=== PATIENT | female | born 1950 | race African-American/Black ===

== ENCOUNTER 2016-10-05 21:25 | Inpatient (IN) | payer OTHER ==
[~2016-10-05] VITALS: Ht 165.1 cm; Wt 50.5 kg
--- NOTE | ~2016-10-05 | PR ---
[place], [place] PROGRESS NOTE NAME: MAXIMILIANO MEANS UNIT #: [id number] ROOM: 317 DOCTOR: JUAREZ CARNES MD BIRTHDATE: [birth year] DOS: 10/15/2016 INTERVAL NOTE CHIEF COMPLAINT: "Come here closer, I want to be able to touch you." SUMMARY OF THE VISIT: The patient was interviewed as I talked to her while she rested in bed. She continued to be very profane and sexually preoccupied. Nurses report that she has been vulgar and crude with them as well. Initially, she refused to take any of her oral medication. When I approached her this morning with a nurse in [place], she initially refused to take any medication, but then when I confronted her on her lack of compliance, she agreed to ultimately take her medicines. Nurses report that she took everything but the Lidocaine patch this morning. She continues to be extremely volatile and hypomanic. She has a hard time redirecting at times, and at other times, she will pool herself together and redirect well. She is tolerating the current medication regimen well and has been getting most of the antipsychotic medications in her without any type of extrapyramidal symptoms or tardive dyskinesia noted. MENTAL STATUS: She is alert and oriented to person, place, and very approximate to time. Mood does seem to be trending towards euthymia with some mild hypomania noted. She is pressured but interruptible. She no longer is tangential in her thinking. She is still rather sexually preoccupied but again usually redirects. There is no severe agitation or aggression noted. Memory for recent events does have some gaps, but overall, she is fairly well intact. PLAN: At the present time is to maintain the current psychotropic regimen. At this point in time, I think we have reached baseline, and we will plan to discharge her back to [facility] later today. She should receive papers regarding guardianship, and I do want her to have 24 hours to process that here in the hospital to make certain that she does not decompensate horribly because of this. If this is the case, we will return her to [facility] then on Tuesday. [place], [place] PROGRESS NOTE NAME: MAXIMILIANO MEANS UNIT #: [id number] ROOM: [facility] DOCTOR: JUAREZ CARNES MD BIRTHDATE: [birth year] JUAREZ CARNES MD CM:PNTRANS 2 5 JUAREZ CARNES MD 10/16/16 0245 interface
--- NOTE | ~2016-10-05 | PR ---
[place], [place] PROGRESS NOTE NAME: MAXIMILIANO MENAS [id number] UNIT #: [id number] ROOM: 317 DOCTOR: CALVIN ALANIZ BIRTHDATE: [birth year] DOS: 10/09/2016 CHIEF COMPLAINT: "Good morning." SUMMARY OF VISIT: The patient was assessed and interviewed in her room. Things went south fairly quickly. I asked her why she was not taking her meds, stated that the Klonopin makes her feet swell, the lithium makes her tongue swell and the Invega gives her diarrhea. Multiple attempts were made yesterday. We could not get the Invega Sustenna injection in her at all to help break the psychosis. Unfortunately, when she becomes manic, she always has underlying delusion that she is a deity, that she is rich and very sexually preoccupied, but as her ana rosa becomes worse, she becomes paranoid, thinking that we are trying to poison her, and then her grandiose delusions become increased aggression and agitation verbally and physically and this is where we are at right now. She turned very quickly on me, attempts to redirect were unsuccessful. She got angry, belligerent, has used foul language with staff. Since she has been here, she has not taken her Klonopin, her lithium or the p.o. Invega, let alone the Invega Sustenna injection. Our thought is that most likely she was [facility]compl[facility] as [facility], hence the ana rosa. MENTAL STATUS: She is alert and oriented to person, place, approximate time, grossly delusional, paranoid, extreme mood lability, manic maybe more hypomanic. PLAN: I am going to go ahead and stop the Klonopin, no sense on this keep trying it. She is adamant. She is standing Klonopin, the lithium. We will keep attempting the Invega Sustenna, so I am going to keep her on the Invega. She has told staff over and over all she wants is Navane, Cogentin and Risperdal. She is already on Cogentin, so I am going to try the Risperdal higher dose M-tablet to see if we can get it in her and get her calm down and we are going to keep trying to get this Invega Sustenna injection in her. JENNA ALANIZ CNP CM:IRMA [id number] CALVIN ALANIZ 10/09/16 112 interface
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
--- NOTE | ~2016-10-05 | WRIGHTHP ---
[place], [place] PATIENT HISTORY AND PHYSICAL EXAM [id number] UN[facility] #: [id number] ROOM: 317 DOCTOR: JUAREZ CARNES MD BIRTHDATE: [birth year] DOS: 10/06/2016 INITIAL PSYCHIATRIC EVALUATION CHIEF COMPLAINT: "I am a zillionaire. I don't need to be here. I wanna go back to my home." HISTORY OF PRESENT ILLNESS: This is a 66-year-old black female who is readmitted to the [facility] coming from [facility] in [place], [place]. The patient has a lengthy history of bipolar disorder and has been escalating into a manic episode over the last 2-3 weeks. During this period of time, she has become increasingly manic with increased sexual behaviors. She has been repeatedly crawling into bed with a paraplegic resident. Attempts to redirect her have been met with her becoming increasingly verbal and physically aggressive with staff. The patient believes she is a zillionaire and no longer needs to be at [facility] and wants to return back to her home. She has been episodically noncompliant with her medicine, further exacerbating her underlying ana rosa. She is admitted now to rule out organic factors to attempt to restabilize on medication while engaging her in individual and schaefer milieu activity. PAST MEDICAL HISTORY: Remarkable for osteoarthritis, hyperlipidemia, hypothyroidism, left eye injury, tardive dyskinesia, vitamin D deficiency, and history of TIAs. MENTAL STATUS EXAMINATION: She is alert and oriented with some time gaps. Mood is overwhelmingly grandiose and expansive. She believes she is a millionaire, or in her report a zillionaire. She is very sexually inappropriate and fixated making multiple sexual comments to me. She is somewhat pressured; however, she is redirectable. Her thoughts are rather disjointed. She is nearly tangential in her thinking, but again can be reigned back in. She is grossly psychotic as well. Short-term memory has some gaps. DIAGNOSIS: Bipolar type 1, manic, with psychotic features. PLAN: I will go ahead and increase her oral Invega from 9 mg a day to 12 mg a day and start her on Saphris oral disintegrating tablets 10 mg twice daily. She had been stabilized in the past on Invega Sustenna. I will look to restabilize her if at all possible. Unfortunately, she does have a history of being very noncompliant with medications, so I will need to utilize medications that are given less frequent and are given in ways in which we can more appropriately get the medication into her. We will need to explore possible discharge options as I am not certain if [facility] will accept her back given her lengthy history of behavioral problems. We will engage her in individual and schaefer milieu activity, discharging her then when psychiatrically stable. [place], [place] PATIENT HISTORY AND PHYSICAL EXAM NAME: MAXIMILIANO MEANS UNIT #: [id number] ROOM: 317 DOCTOR: JUAREZ CARNES MD BIRTHDATE: [birth year] JUAREZ CARNES MD CM:HISPHYS:PATIENT HISTORY AND PHYSICAL EXAMINATION 6 JUAREZ CARNES MD 10/06/1637 interface
--- NOTE | ~2016-10-05 | DS ---
[place], [place] DISCHARGE SUMMARY NAME: MAXIMILIANO MEANS UNIT #: [id number] ROOM: 317 DOCTOR: JUAREZ CARNES MD BIRTHDATE: [birth year] DOS: 10/19/2016 ADDENDUM PROPOSED INITIAL DATE OF DISCHARGE: 10/16/2016. ACTUAL DISCHARGE DATE: 10/19/2016. CHIEF COMPLAINT: This morning, "If I don't go home today, will you see that I get an Orthopedic consult." SUMMARY OF THE REMAINDER OF THE VISIT: The patient was to be discharged to [facility] on 10/16/2016. However, due to staffing issues there, [facility] refused to take the patient back stating that it was unsafe. We did have to keep the patient through the weekend until Tuesday. During this period of time, she remains somewhat labile but was redirectable. She did require some PRNs but responded very well to them and had no adverse events. Ultimately, because of some of her mood lability and episodic noncompliance with medicine, she was reloaded with Risperdal Consta 50 mg IM yesterday. She tolerated this well and has had a positive benefit. Of note, this seems to be the patient's baseline. She mixes both behavior along with hypomania, and I do believe that this is about as good as her overall mental status is going to be. She was discharged now to [facility] for further treatment. MENTAL STATUS AT DISCHARGE: The patient is alert and oriented with some time gaps. Mood does seem to be more euthymic with some hypomanic episodes. There is some sexual preoccupation, but again, I believe this is baseline. She is tolerating the medication regimen well without any apparent extrapyramidal symptoms, tardive dyskinesia, or other side effects. FINAL DIAGNOSIS: Remains the same. The patient is to return to [facility] where I will follow upon her return there. [place], [place] DISCHARGE SUMMARY NAME: MAXIMILIANO MEANS UNIT #: [id number] ROOM: 317 DOCTOR: JUAREZ CARNES MD BIRTHDATE: [birth year] JUAREZ CARNES MD CM:JOSE [phone] JUAREZ CARNES MD 10/19/16 0818 interface
--- NOTE | ~2016-10-05 | PR ---
[place], [place] PROGRESS NOTE NAME: MAXIMILIANO MEANS UNIT #: [id number] ROOM: 317 DOCTOR: JUAREZ CARNES MD BIRTHDATE: [birth year] DOS: 10/12/2016 INTERVAL NOTE CHIEF COMPLAINT: "I don't want to go back to [facility], I want to go to [facility] or [facility]. SUMMARY OF THE VISIT: The patient was interviewed in the dining area at first she engaged in relatively normal conversation with me, stating how she was disappointed to be in the hospital over the holidays and how it was a rough weekend. She later went on to explain how she would like not to return back to [facility], but would like to be placed either [facility] or [facility]. I did discuss with her the possibility of [facility] as well and she was aware that this is the facility located near the [facility] and would be okay with that. Conversation deteriorated quickly after that and she became then sexually inappropriate with gross sexual comments directed towards me. She did redirect; however, more readily. The patient is tolerating her current medication regimen well and in general is taking her oral medications on a more consistent basis. MENTAL STATUS: She is alert and oriented with some time gaps. Mood does seem to be trending towards euthymia. Affect is more appropriate. There is still the presence of hypomania with a great deal of sexual preoccupation. She at times is pressured, but she is interruptible. There has no attempts for physical aggression noted. Memory for some short term events is poor, otherwise she is fairly well intact. PLAN: At the present time, I will maintain her current psychotropic regimen, which includes the use of 2 antipsychotics medications in order to control her mood lability and gross psychotic symptoms. I will discuss the case at length with director social welfare to see if alternative placement to either [facility] or [facility] is an option for her. We will continue to engage her in individual and schaefer milieu activity with the plan to return to a long-term care facility then when psychiatrically stable. [place], [place] PROGRESS NOTE NAME: MAXIMILIANO MENAS UNIT #: [id number] ROOM: [facility] DOCTOR: JUAREZ CARNES MD BIRTHDATE: [birth year] JUAREZ CARNES MD CM:PNTRANS [phone] JUAREZ CARNES MD 11/24/16 1540 interface
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
--- NOTE | ~2016-10-05 | CON ---
[place], [place] REPORT OF CONSULTATION NAME[id number] UNIT #: [id number] ROOM: 317 DOCTOR: LASHAY SHEARER ED.D (SILVIA) BIRTHDATE: [birth year] DOS: HISTORY OF PRESENT ILLNESS: The patient is a 66-year-old female referred by Dr. Carnes for competency evaluation. At the present time, this patient knows she is on the [facility] at [facility]. She is receiving services from [facility] at this time. Her family physician is Dr. Roberts in [place], [place]. PAST MEDICAL HISTORY: Pertinent for osteoarthritis, hypothyroidism, left eye injury, tardive dyskinesia, vitamin D deficiency, history of TIAs, bipolar disorder with psychotic features. MEDICATIONS: Include Risperdal, Cogentin, Synthroid, atorvastatin, Syphis, Ativan and Geodon. She does admit to smoking 3 packs of cigarettes per day, but drinks relatively little alcohol, although she does drink alcohol on rare occasions. She was awake, alert and oriented in all 3 spheres. She indicated she is at [facility] and it is 10/12/2016. She denies any auditory or visual hallucinations or delusions. Her short and long-term memory appeared to be intact. Her speech was coherent. She does get quite agitated and aggressive at times, but she was not aggressive whatsoever during the interview. In my opinion, this patient appeared to be competent to make informed healthcare decisions. DIAGNOSIS: AXIS I: Bipolar 1 with psychotic features. RECOMMENDATIONS: Continue milieu activities on the unit. Thank you very much for this consult. LASHAY SHEARER ED.D CM:CONSTR:REPORT OF CONSULTATION 1509 11/25/16 1054 interface JUAREZ CARNES MD
--- NOTE | ~2016-10-05 | PR ---
[place], [place] PROGRESS NOTE NAME[facility]ANS [id number] UNIT #: [id number] ROOM: 317 DOCTOR: JUAREZ CARNES MD BIRTHDATE: [birth year] DOS: 10/18/2016 CHIEF COMPLAINT: "I wanna go home. Is that gonna happen today?" SUMMARY OF THE VISIT: I had an interesting visit with the patient today. I deliberately made her the last person that I rounded in the dining area. Of note, as I approached each other patient I had her at no point where she interrupting me or intrusive. She made no inappropriate comments towards me, which is in [place] contrast to earlier in her hospitalization when this was not seemingly possible as I initially approached her to engage her, she was pleasant and cooperative. She later made some inappropriate comments such as if she was to be evaluated the nurses needed to be evaluated too because someone as important as her needs to make certain that the people taking care of her know what they are doing. Nurses report continued mood lability throughout the day; she has escalated to the point of tearing her mattress of the bed attempting to strike out at others. At other times, she does seem to be more redirectable. I do think we are looking at a mixture at this point of hypomanic symptoms mixed with behavior. I do believe that if she is able to stay in control in the room talking to other patients that she is not frankly manic, but that some of her behaviors are simply that. I do think when she receives her p.r.n. medications, they do give her benefit and she is still episodically noncompliant with her medicines. I will go ahead and try to load her with Risperdal Consta 50 mg IM now to see if we can gain further control over her hypomania. She is tolerating the current medications well, and I see no extrapyramidal symptoms, tardive dyskinesia, somnolence or others side effects themselves. My hope is that we are able to discharge her to [facility], which should have actually happened several days ago. I also think that when she is there, it would benefit them from consulting a psychologist to help set up a behavioral management plan to help deal with her behaviors and find a way to reward her for better behaviors or finding a way to rein her in for the undesirable behaviors. MENTAL STATUS: She is alert and oriented to person, place and very approximate to time. Mood does seem to be overall trending towards euthymia and affect is more appropriate. There are no symptoms of ana rosa. I think at best, she is hypomanic, but even then trending toward further improvement. There are no overt auditory or visual hallucinations, delusions or paranoia. Short-term memory has mild gaps; otherwise she is relatively well intact. PLAN: As mentioned earlier, I will load with Risperdal Consta 50 mg IM now and every 14 days. If she continues to be compliant with the Consta, we can discontinue the oral Risperdal maintaining the Saphris with it at this point in time. As mentioned previously, I planned to discharge back to [facility] when a bed is available. [place], [place] PROGRESS NOTE NAME: MAXIMILIANO MEANS UNIT #: [id number] ROOM: 317 DOCTOR: JUAREZ CARNES MD BIRTHDATE: [birth year] JUAREZ CARNES MD CM:PNTRANS [phone] JUAREZ CARNES MD 11/24/16 1531 interface
--- NOTE | ~2016-10-05 | PR ---
[place], [place] PROGRESS NOTE [id number] UNIT #: [id number] ROOM: 317 DOCTOR: CALVIN ALANIZ STEVIE BIRTHDATE: [birth year] DOS: 10/11/2016 CHIEF COMPLAINT: "Good morning Stevie, how are you?" SUMMARY OF VISIT: The patient was interviewed in the dining room where she was eating breakfast. She engaged readily in conversation, was pleasant. I asked her how she was doing, and she is like, "not so good," and I asked her why. She said, "Well, physically I am okay; mentally I want to thank you for making the medication changes that you've made. I don't want to be here, but I think I'm feeling better." Emotionally she said, "I'm lonely," and she said that she wanted to have somebody to love, and so she is hypersexual with everybody, I assume. She was talking sexually, and I said, "You mean in a sexual manner?" She says, "Well, yeah that." She is with just somebody to love and be loved by and to have. This is the most insight I have actually gotten from the patient in a very long time. She expressed that she is lonely and that she does not want to be here, and some of her behaviors she is aware of. It should be noted that along with her medication changes a couple of days ago, she did receive p.r.n. Ativan during the day, and it was the most engaging that she has ever been. She communicated well with the other residents, the staff. She was interactive. She invited people to eat with her, to play games with her, joked with them. She is fixated in her mind that she cannot take Klonopin or Ativan or anything like that because it causes her ankles to swell, but whenever she has the Ativan on board, she actually is much more calm. MENTAL STATUS: She is alert and oriented to person, place, approximate time. I think she can still be delusional if you get her talking about God, and such, she will tell you that she is a God, but then she also acknowledges that her behaviors sometimes she does them to get what she wants because she feels she gets ignored. She is still sexually preoccupied. She did make an inappropriate sexual comment towards me today. She stated she meant it as a compliment. No overt signs of auditory or visual hallucinations. No paranoia right now. PLAN: She did ask me again to stop the Invega. She has been refusing it since she has been here, and she does not want any kind of injection. She goes "needles freak me out." She goes "I will lose it when I think there is going to be a needle involved." So, we will go ahead and stop the Invega as well. I had stopped the Klonopin because she felt that it was causing ankle swelling, and I stopped the lithium because I think she said it made her puffy. All these medications she had been refusing since she has been here anyway, so they were not even on board to start with, and I do not know how compliant she was at [facility]. So, we are going to get rid of the Invega. She wanted to be on the Risperdal again, so I had her on 2 mg q.a.m. I am going to increase that to b.i.d. She wants to be on the Cogentin, and she is on that as well. Again, the last couple of days, she has been the most interactive and articulate that she has been in a while. She also wants to be back on Navane. I am going to defer this for now. We will continue to try to engage in individual and schaefer milieu therapy. I have asked the nurses today to try to talk to her a little bit more about, maybe, Ativan scheduled and get a feel of whether or not she would take it because I really feel from her behavior and personality standpoint that benzos seems to do really well in her system. I think that is why we are going [place], [place] PROGRESS NOTE NAME: MAXIMILIANO MEANS [place] UNIT #: [id number] ROOM: 317 DOCTOR: CALVIN ALANIZ BIRTHDATE: [birth year] with the Klonopin to start with, but she is fixated on Klonopin right now causing her ankles to swell. She has also articulated the desire to go to another nursing facility and I think it is because she just wants to be around people more like herself. She feels that the [facility] is predominantly white and staff predominantly white, and they do not get her, so we will follow up with a social media manager with regard to that to see what her options are. We will continue to try to engage in individual and schaefer milieu therapy, use non-pharmaceutical interventions when appropriate and make the medication adjustments I mentioned above. STEVIE ALANIZ CNP CM:PNTRANS [id number] CALVIN ALANIZ 10/11/16 1301 interface
--- NOTE | ~2016-10-05 | PR ---
[place], [place] PROGRESS NOTE NAME: [facility]ANS [id number] UNIT #: [id number] ROOM: 317 DOCTOR: CALVIN ALANIZ BIRTHDATE: [birth year] DOS: 10/07/2016 CHIEF COMPLAINT: "aha." SUMMARY OF VISIT: The patient was interviewed in the dining room where she was eating breakfast. She would not look at me, would just say aha or yeah or no to my questions. She would not engage in conversation. This is normal for her. She does certainly has a preference for males, in particular Dr. Marmolejo. Nursing did mention that she would only take her Synthroid and her Saphris yesterday. She refused other meds during the day, not so much in the evening. MENTAL STATUS EXAMINATION: She is alert and oriented to person, place, and approximate to time. Mood wildly labile. While we were in report she began pounding on the window because she saw Dr. Marmolejo and wanted his attention. She still believes that she is a millionaire to [employer]. She is sexually inappropriate, fixated on making multiple sexual comments not only to Dr. Marmolejo, but any other gentleman on the unit such as security guards. PLAN: Dr. Marmolejo increased her Invega yesterday, however, she appears that she did not take it. We are going to try to get it in her again today and see if we can get her to take it. If she does, then we are going to have to look at possibly doing a loading dose or reloading her on Invega Sustenna to see if we can help break the psychosis, and we had had to do this in the past. She has a long history of noncompliance with her medications. We will see how she does with her p.o. and recommended meds today. I did go back out and talked to her that she needed to take her meds. She would not look at me. If she does it again, we will look at the Invega Sustenna injection. JENNA AALNIZ CNP CM:PNTRANS [phone] CALVIN ALANIZ 10/07/162046 interface
--- NOTE | ~2016-10-05 | PR ---
[place], [place] PROGRESS NOTE NAME: MAXIMILIANO MEANS UNIT #: [id number] ROOM: 317 DOCTOR: MANFRED VELÁZQUEZ,LASHAY RIDER) BIRTHDATE: [birth year] DOS: 10/13/2016 UPDATE I reevaluated this patient on 10/13/2016, and she is clearly delusional today. She is clearly not competent to make informed healthcare decisions, and I did complete guardianship papers for probate court. In my opinion, she will need an emergency guardianship due to the fact that she cannot make informed decisions regarding her healthcare or any decisions regarding her person. Dr. Marmolejo will need to complete the paperwork for the guardianship tomorrow when he makes rounds. LASHAY SHEARER ED.D CM:IRMA [id number] LASHAY SHEARER ED (BOB).D 10/14/16 1424 interface
--- NOTE | ~2016-10-05 | PR ---
[place], [place] PROGRESS [id number] UNIT #: [id number] ROOM: 317 DOCTOR: CALVIN ALANIZ BIRTHDATE: [birth year] DOS: 10/10/2016 CHIEF COMPLAINT: "Good morning." SUMMARY OF VISIT: The patient was interviewed in her room where she was lying in bed. She engaged in conversation, was actually pleasant today, thanked me for changing her meds yesterday, and stated that she really just does not want any more injections. She does not like needles, they freak her out; please do not force her to take any injections. MENTAL STATUS: She is alert and oriented to person, place, approximate time. She can still be grossly delusional, incredibly sexually preoccupied, was inappropriate with a security systems integrator yesterday and the male nurse on the unit yesterday. PLAN: I made significant changes to her meds yesterday. I stopped her lithium and her Klonopin because she felt that they were causing side effects. I am keeping the p.o. Invega in case she will take it, but she still insisting she is not going to take it. I will avoid the Invega Sustenna since that is the injection, she does not want it. She said she is feeling a little bit better on the Risperdal. I am going to keep it where it is at today, at 2 mg q. day, most likely bump it up to b.i.d., but let me see how she does over the next 24 hours. She is on the Cogentin. She wants Navane added back, but again I am holding off on this. Today is the first day she asked, when do I think she might be able to get out of here. Again, still can be grossly delusional, predominantly sexually preoccupied. So, we will continue to try to redirect, engage in individual and schaefer milieu therapy and let see how she does in the next 24 hours and we will go from there. JENNA ALANIZ CNP CM:PNTRANS [phone] CALVIN ALANIZ 11/24/16 1542 interface
--- NOTE | ~2016-10-05 | PR ---
[place], [place] PROGRESS NOTE NAME: MAXIMILIANO MEANS UNIT #: [id number] ROOM: 317 DOCTOR: CALVIN ALANIZ BIRTHDATE: [birth year] DOS: 10/13/2016 CHIEF COMPLAINT: "Good morning." SUMMARY OF VISIT: The patient was assessed in her room, where she engaged readily in conversation. Nursing notes that she did use p.r.n. Ativan last night to help with sleep. The patient is adamant she does not want to go back to [facility] and that she wants to go to either [facility] or [facility]; however, both of those facilities have been contacted along with [facility] and all three have denied her. Her brother is coming in tomorrow, talk about possibly her going home with him, but there is a little glitch to this, the patient does not like her brother. She continues to be sexually inappropriate, wild mood lability, at times can be very pleasant and engaging, then all of a sudden, it is like somebody flipped a switch and she becomes very irritable, angry and verbally abusive. MENTAL STATUS: Alert and oriented to person, place, approximate time. Mood actually overall trend towards euthymic, but affect can be appropriate, but again still having these wild mood labilities at times where you cannot redirect her. PLAN: Continue with the current psychotropic regimens. We are still trying to figure out what our options are. We will have a better idea after we talked to her brother tomorrow. We are also using 2 antipsychotic medications at this time to control her mood lability and gross psychotic symptomatology. We will try to figure out what placement options we have for her and go from there. JENNA ALANIZ CNP CM:PNTRANS [phone] CALVIN ALANIZ 11/24/16 1536 interface
--- NOTE | ~2016-10-05 | PR ---
[place], [place] PROGRESS NOTE NAME: MAXIMILIANO MEANS UNIT #: [id number] ROOM: 317 DOCTOR: JUAREZ CARNES MD BIRTHDATE: [birth year] DOS: 10/08/2016 INTERVAL NOTE CHIEF COMPLAINT: "I want to go home." SUMMARY OF THE VISIT: The patient was interviewed as she sat eating her breakfast. She stopped and engaged in relatively normal conversation with me. She had verbalized a wish to go to her old home. I did talk to her at length about this and stated that I believe that her old home has been sold. She reported to me that her brother continues to tell her that it is still there and I did bring up the possibility that he did not want to tell her the bad news and that I would look into this with social worker school help once and for all to let her know this is even an option. To the best of my knowledge, she no longer has a home to return to, hence the need to stay at a long-term care facility. She is tolerating the current medication regimen well and was a little less sexually preoccupied this morning and a little bit more goal directed in her thinking. I observed no tardive dyskinesia, extrapyramidal symptoms, sedation or somnolence or any other side effects from the medications themselves. MENTAL STATUS EXAMINATION: She was alert and oriented with some time gaps. Mood did seem to be more euthymic today and she was much more appropriate. Speech rate and pattern were not pressured and seemed to be of normal rate and pattern. There are no overt auditory or visual hallucinations, delusions or paranoia voiced. Short term, intermediate memory and long-term memory were relatively well intact. PLAN: Given the fact that she is episodically noncompliant with her medicine, I will attempt to load her with Invega Sustenna 234 mg IM today. Following this, then with 156 mg secondary loading dose within the next 5-7 days. Continue to engage her in individual and schaefer milieu activity. I will have social worker school reach out to [facility] to determine whether or not if her return there is even a possibility or if alternative placement needs to be obtained. We will engage her in individual and schaefer milieu activity with the plan to discharge then when psychiatrically stable. [place], [place] PROGRESS NOTE NAME: MAXIMILIANO MEANS UNIT #: [id number] ROOM: [facility] DOCTOR: JUAREZ CARNES MD BIRTHDATE: [birth year] JUAREZ CARNES MD CM:PNTRANS [phone] JUAREZ CARNES MD 10/08/16 0948 interface
[~2016-10-05 21:25] MED LIST: ARISTADA882 MG/3.2 IM; ATIVAN2 M1 PO; ATIVAN2 MG/ML IM; BENZTROPINE ME0.5 MG PO; COGENTIN0.5 MG PO; DEPAKOTE500 MG PO; DICLOFENAC SOD75 MG PO; ESKALITH,LITHI300 MG PO; GEODON20 M1 IM; HALDOL5 MG PO; HALOPERIDOL100 MG/M1 IM; Haldol Concen2 MG/ML IM; IBU800 MG PO; INVEGA SUSTENN156 MG IM; KLONOPIN1 M1 PO; LEVOTHYROXINE0.05 MG PO; LIPITOR20 MG PO; LITHIUM CARB300 MG PO; LORAZEPAM0.5 MG PO; MIRTAZAPINE15 M2 PO; NATURAL BALANCE15 M1 OS; NTS1 EACH TD; OXYBUTYNIN5 MG PO; RISPERDAL1 M1 PO; RISPERDAL2 M1 PO; SERTRALINE HYDR50 MG PO; TRAZODONE100 MG PO; TRAZODONE150 MG PO; TYLENOL325 M1 PO; VITAMIN D50000 I3 PO; WATER FOR INJECT5 ML IM; ZOLOFT50 MG PO; [UNRECOGNIZED DRUG - OTHER] T
[2016-10-05] MEDS ORDERED: OXYBUTYNIN5 MG PO (21:45)
[2016-10-05] MEDS ORDERED: PALIPERIDONE ER9 MG PO (21:46)
[2016-10-05] MEDS ORDERED: [UNRECOGNIZED DRUG - OTHER] OPH (21:48)
[2016-10-05] MEDS ORDERED: DULCOLAX10 M1 RC (21:50)
[2016-10-05] MEDS ORDERED: FLEET ADULT ENEM1 EA R (21:51)
[2016-10-05] MEDS ORDERED: GEODON20 M1 IM (21:52)
[2016-10-05] MEDS ORDERED: MOM30 M1 PO (21:53)
[2016-10-06 04:38] LABS: BILIRUBIN NEGATIVE (NEGATIVE); BLOOD TRACE-INTACT (NEGATIVE); CLARITY CLEAR (CLEAR); COLOR YELLOW (YELLOW); GLUCOSE NEGATIVE (NEGATIVE); KETONE NEGATIVE (NEGATIVE); LEUKO ESTERASE NEGATIVE (NEGATIVE); NITRITE NEGATIVE (NEGATIVE); PH 6.5 (5.0-9.0); PROTEIN NEGATIVE (NEGATIVE); UROBILINOGEN 0.2 E.U./dl (0.2-1.0)
[2016-10-06 04:50] LABS: URINE REFLEX COMMENT NO (NO); WBC 0-2 wbc/hpf (0-5)
[2016-10-06 07:42] VITALS: BP 123/67
[2016-10-06 20:00] VITALS: BP 119/55
[2016-10-07 07:40] VITALS: BP 137/71
[2016-10-07 19:05] VITALS: BP 135/56
[2016-10-08 08:00] VITALS: BP 127/55
[2016-10-08 20:38] VITALS: BP 124/63
[2016-10-09 08:04] VITALS: BP 117/62
[2016-10-09 20:00] VITALS: BP 125/60
[2016-10-10 08:41] VITALS: BP 144/74
[2016-10-10 19:50] VITALS: BP 141/51
[2016-10-11 08:19] VITALS: BP 124/72
[2016-10-11 19:52] VITALS: BP 106/66; BP 137/67
[2016-10-12 13:02] LABS: BASO % 0.3 % (0.0-1.0); EOS # 0.2 10*3/uL (0.0-0.4); EOS % 1.7 % (1.0-4.0); HEMATOCRIT 37.1 % (37.0-47.0); HEMOGLOBIN 12.1 g/dl (12.0-16.0); IG # 0.1 10*3/uL (0.0-0.1); LYMPH # 2.4 10*3/uL (1.3-4.4); LYMPH % 20.7 % (27.0-41.0); MEAN CELL VOLUME 94.6 fl (81.0-99.0); MEAN CORPUSCULAR HGB 30.9 pg (27.0-31.0); MEAN CORPUSCULAR HGB CONC 32.6 g/dl (33.0-37.0); MONO # 0.7 10*3/uL (0.1-1.0); MONO % 5.7 % (3.0-9.0); NEUT # 8.4 10*3/uL (2.3-7.9); NEUT % 70.9 % (47.0-73.0); PLATELET COUNT AUTOMATED 269 10*3/uL (130-400); RED BLOOD COUNT 3.92 10*6/uL (4.10-5.10); RED CELL DISTRI WIDTH 12.9 % (0-14.5); WHITE BLOOD COUNT 11.8 10*3/uL (4.8-10.8)
[2016-10-12 13:39] LABS: ALBUMIN 3.4 gm/dl (3.1-4.5); ALKALINE PHOSPHATASE 80 U/L (45-117); BILIRUBIN, TOTAL 0.3 mg/dl (0.2-1.0); BUN 11 mg/dl (7-24); CARBON DIOXIDE 25 mmol/L (21-32); CHLORIDE 109 mmol/L (98-107); EST GLOM FILT AFRICAN AMERICAN > 60 ml/min; GLUCOSE 138 mg/dL (65-99); POTASSIUM 3.3 mmol/L (3.5-5.1); SGOT/AST 9 IU/L (3-35); SGPT/ALT 20 U/L (12-78); SODIUM 146 mmol/L (136-145); TOTAL PROTEIN 7.3 gm/dL (6.4-8.2)
[2016-10-12 13:47] LABS: FREE T4 1.11 ng/dl (0.76-1.46); THYROID STIM HORMONE (HS) 3.44 uIU/ml (0.358-4.75)
[2016-10-12 15:03] LABS: VITAMIN D, 25-HYDROXY 23.7 ng/mL (30-100)
[2016-10-12 15:04] LABS: FOLIC ACID 6.06 ng/mL (>5.38)
[2016-10-13 08:00] VITALS: BP 125/74
[2016-10-14 08:29] VITALS: BP 132/83
[2016-10-14 20:18] VITALS: BP 128/57
[2016-10-15 20:00] VITALS: BP 140/81
[2016-10-16 08:48] VITALS: BP 136/78
[2016-10-16] MEDS ORDERED: SAPHRIS5 M1 SL (10:19)
[2016-10-16] MEDS ORDERED: RISPERDAL3 M1 PO (10:19)
[2016-10-17 08:00] VITALS: BP 114/59
[2016-10-18 08:00] VITALS: BP 157/80
[2016-10-19] MEDS ORDERED: RISPERDAL CONST50 MG IM (07:53)
[2016-10-19 08:00] VITALS: BP 138/74
[2016-10-19] MEDS ORDERED: NOVAPLUS LORA2 MG/ML IM (08:40)
== END 2016-10-19 17:20 | DRG 885 ==
LOC: 3N 21:25
PROVIDERS: Psychiatry & Neurology Psychiatry
DX: F31.2 Bipolar disorder, current episode manic severe with psychotic features (principal); Z91.14 Patient's other noncompliance with medication regimen; F23 Brief psychotic disorder; Z68.1 Body mass index [BMI] 19.9 or less, adult; M19.90 Unspecified osteoarthritis, unspecified site; E03.9 Hypothyroidism, unspecified; R52 Pain, unspecified; Z96.649 Presence of unspecified artificial hip joint; E78.5 Hyperlipidemia, unspecified; E66.9 Obesity, unspecified; Z86.73 Personal history of transient ischemic attack (TIA), and cerebral infarction without residual deficits; Z88.1 Allergy status to other antibiotic agents; Z88.8 Allergy status to other drugs, medicaments and biological substances; Z98.890 Other specified postprocedural states; Z79.899 Other long term (current) drug therapy